=== PATIENT | female | born 1980 | race Caucasian/White ===

== ENCOUNTER → 2021-03-25 | Day surgery (SDC) | payer OTHER ==
[~2021-03-25] MED LIST: LACTULOSE10 GM/15 M PO; LEVOTHYROXINE50 MCG PO; SUBOXONE 8 MG-1 EACH SL
== END | disposition home or self-care (01) ==
LOC: OR 06:27
DX: K29.50 Unspecified chronic gastritis without bleeding (principal); K56.41 Fecal impaction; K21.00 Gastro-esophageal reflux disease with esophagitis, without bleeding; K22.10 Ulcer of esophagus without bleeding; C80.1 Malignant (primary) neoplasm, unspecified; C78.7 Secondary malignant neoplasm of liver and intrahepatic bile duct; R59.1 Generalized enlarged lymph nodes; E03.9 Hypothyroidism, unspecified; F17.200 Nicotine dependence, unspecified, uncomplicated; Z98.51 Tubal ligation status; Z20.822 Contact with and (suspected) exposure to COVID-19; Z80.41 Family history of malignant neoplasm of ovary
CPT/HCPCS: 84703; J2250; J2704; J3010; J7040; U0002

== ENCOUNTER → 2021-04-13 | Outpatient (CLI) | payer OTHER | LOC: KOH-I 04-08 14:30 | DX: K76.9 Liver disease, unspecified (principal); R59.9 Enlarged lymph nodes, unspecified; R16.1 Splenomegaly, not elsewhere classified; R59.0 Localized enlarged lymph nodes | CPT/HCPCS: 71046; 76536 ==

== ENCOUNTER → 2021-05-12 | Outpatient (CLI) | payer OTHER ==
[~2021-05-12] MED LIST changes: +AMOXICILLIN875 MG PO; +VITAMIN E180 M1 PO
== END ==
LOC: CT 13:30
DX: R59.9 Enlarged lymph nodes, unspecified (principal); K76.9 Liver disease, unspecified; R15.1 Fecal smearing; B19.10 Unspecified viral hepatitis B without hepatic coma; R16.2 Hepatomegaly with splenomegaly, not elsewhere classified
CPT/HCPCS: 70490; 71250; 74150; Q9967

== ENCOUNTER → 2021-05-14 | Day surgery (SDC) | payer OTHER ==
[2021-05-16 12:09] LABS: HBV IU/ML 888000000 IU/mL (.); HBV IU/ML See Final Results IU/mL (.); LOG10 HBV IU/ML 8.948 (.)
== END | disposition home or self-care (01) ==
LOC: OR 04-22 07:30
PROVIDERS: Internal Medicine Gastroenterology
DX: D12.3 Benign neoplasm of transverse colon (principal); K62.1 Rectal polyp; K64.0 First degree hemorrhoids; K59.03 Drug induced constipation; C78.7 Secondary malignant neoplasm of liver and intrahepatic bile duct; C80.1 Malignant (primary) neoplasm, unspecified; B18.2 Chronic viral hepatitis C; F17.200 Nicotine dependence, unspecified, uncomplicated; B18.1 Chronic viral hepatitis B without delta-agent; E03.9 Hypothyroidism, unspecified; R59.0 Localized enlarged lymph nodes; T40.2X5A Adverse effect of other opioids, initial encounter; Z20.822 Contact with and (suspected) exposure to COVID-19; Z98.51 Tubal ligation status
CPT/HCPCS: 36415; 84703; 87517; 87521; J2704; J7040